=== PATIENT | male | born 1950 | race Caucasian/White ===

== ENCOUNTER 2020-04-28 09:12 | Day surgery (SDC) | payer OTHER | END 2020-04-28 22:48 | disposition home or self-care (01) | LOC: EDBD 09:12 → WOUND 09:12 | DX: L59.8 Other specified disorders of the skin and subcutaneous tissue related to radiation (principal); R07.0 Pain in throat; Z85.818 Personal history of malignant neoplasm of other sites of lip, oral cavity, and pharynx | CPT/HCPCS: G0463 ==

== ENCOUNTER 2020-05-04 00:46 | Day surgery (SDC) | payer OTHER | END 2020-05-04 23:45 | LOC: HBO 00:46 | DX: L59.8 Other specified disorders of the skin and subcutaneous tissue related to radiation (principal); R07.0 Pain in throat; Z85.818 Personal history of malignant neoplasm of other sites of lip, oral cavity, and pharynx; Y84.2 Radiological procedure and radiotherapy as the cause of abnormal reaction of the patient, or of later complication, without mention of misadventure at the time of the procedure | CPT/HCPCS: G0277 ==

== ENCOUNTER 2020-05-05 00:09 | Day surgery (SDC) | payer OTHER | END 2020-05-05 23:45 | LOC: HBO 00:09 | DX: L59.8 Other specified disorders of the skin and subcutaneous tissue related to radiation (principal); Z85.818 Personal history of malignant neoplasm of other sites of lip, oral cavity, and pharynx; R07.0 Pain in throat; Y84.2 Radiological procedure and radiotherapy as the cause of abnormal reaction of the patient, or of later complication, without mention of misadventure at the time of the procedure | CPT/HCPCS: G0277 ==

== ENCOUNTER 2020-05-06 00:13 | Day surgery (SDC) | payer OTHER | END 2020-05-06 23:45 | disposition home or self-care (01) | LOC: HBO 00:13 | DX: L59.8 Other specified disorders of the skin and subcutaneous tissue related to radiation (principal); R07.0 Pain in throat; Y84.2 Radiological procedure and radiotherapy as the cause of abnormal reaction of the patient, or of later complication, without mention of misadventure at the time of the procedure; Z85.818 Personal history of malignant neoplasm of other sites of lip, oral cavity, and pharynx | CPT/HCPCS: G0277 ==

== ENCOUNTER 2020-05-07 00:16 | Day surgery (SDC) | payer OTHER | END 2020-05-07 23:45 | disposition home or self-care (01) | LOC: HBO 00:16 | DX: L59.8 Other specified disorders of the skin and subcutaneous tissue related to radiation (principal); R07.0 Pain in throat; Z85.818 Personal history of malignant neoplasm of other sites of lip, oral cavity, and pharynx | CPT/HCPCS: G0277 ==

== ENCOUNTER 2020-05-08 02:03 | Day surgery (SDC) | payer OTHER | END 2020-05-08 23:45 | disposition home or self-care (01) | LOC: HBO 02:03 | DX: L59.8 Other specified disorders of the skin and subcutaneous tissue related to radiation (principal); R07.0 Pain in throat; Z85.818 Personal history of malignant neoplasm of other sites of lip, oral cavity, and pharynx | CPT/HCPCS: G0277 ==

== ENCOUNTER 2020-05-11 00:32 | Day surgery (SDC) | payer OTHER | END 2020-05-11 23:12 | disposition home or self-care (01) | LOC: HBO 00:32 | DX: L59.8 Other specified disorders of the skin and subcutaneous tissue related to radiation (principal); R07.0 Pain in throat; Z85.818 Personal history of malignant neoplasm of other sites of lip, oral cavity, and pharynx | CPT/HCPCS: G0277 ==

== ENCOUNTER 2020-05-12 00:36 | Day surgery (SDC) | payer OTHER | END 2020-05-12 22:47 | disposition home or self-care (01) | LOC: HBO 00:36 | DX: L59.8 Other specified disorders of the skin and subcutaneous tissue related to radiation (principal); R07.0 Pain in throat; Z85.818 Personal history of malignant neoplasm of other sites of lip, oral cavity, and pharynx | CPT/HCPCS: G0277 ==

== ENCOUNTER 2020-05-13 00:09 | Day surgery (SDC) | payer OTHER | END 2020-05-13 23:04 | disposition home or self-care (01) | LOC: HBO 00:09 | DX: L59.8 Other specified disorders of the skin and subcutaneous tissue related to radiation (principal); R07.0 Pain in throat; Z85.818 Personal history of malignant neoplasm of other sites of lip, oral cavity, and pharynx | CPT/HCPCS: G0277 ==

== ENCOUNTER 2020-05-14 00:26 | Day surgery (SDC) | payer OTHER | END 2020-05-14 22:45 | disposition home or self-care (01) | LOC: HBO 00:26 | DX: L59.8 Other specified disorders of the skin and subcutaneous tissue related to radiation (principal); R07.0 Pain in throat; Z85.818 Personal history of malignant neoplasm of other sites of lip, oral cavity, and pharynx | CPT/HCPCS: G0277 ==

== ENCOUNTER 2020-05-15 02:18 | Day surgery (SDC) | payer OTHER | END 2020-05-15 22:40 | disposition home or self-care (01) | LOC: HBO 02:18 | DX: L59.8 Other specified disorders of the skin and subcutaneous tissue related to radiation (principal); R07.0 Pain in throat; Z85.818 Personal history of malignant neoplasm of other sites of lip, oral cavity, and pharynx; Y84.2 Radiological procedure and radiotherapy as the cause of abnormal reaction of the patient, or of later complication, without mention of misadventure at the time of the procedure; Y78.8 Miscellaneous radiological devices associated with adverse incidents, not elsewhere classified | CPT/HCPCS: G0277 ==

== ENCOUNTER 2020-05-18 00:27 | Day surgery (SDC) | payer OTHER | END 2020-05-18 23:54 | disposition home or self-care (01) | LOC: HBO 00:27 | DX: L59.8 Other specified disorders of the skin and subcutaneous tissue related to radiation (principal); R07.0 Pain in throat; Z85.818 Personal history of malignant neoplasm of other sites of lip, oral cavity, and pharynx | CPT/HCPCS: G0277 ==

== ENCOUNTER 2020-05-19 01:07 | Day surgery (SDC) | payer OTHER | END 2020-05-19 23:40 | disposition home or self-care (01) | LOC: HBO | DX: L59.8 Other specified disorders of the skin and subcutaneous tissue related to radiation (principal); R07.0 Pain in throat; Z85.818 Personal history of malignant neoplasm of other sites of lip, oral cavity, and pharynx | CPT/HCPCS: G0277 ==

== ENCOUNTER 2020-05-20 00:44 | Day surgery (SDC) | payer OTHER | END 2020-05-20 22:58 | disposition home or self-care (01) | LOC: HBO 00:44 | DX: L59.8 Other specified disorders of the skin and subcutaneous tissue related to radiation (principal); R07.0 Pain in throat; Y84.2 Radiological procedure and radiotherapy as the cause of abnormal reaction of the patient, or of later complication, without mention of misadventure at the time of the procedure; Y78.8 Miscellaneous radiological devices associated with adverse incidents, not elsewhere classified; Z85.818 Personal history of malignant neoplasm of other sites of lip, oral cavity, and pharynx | CPT/HCPCS: G0277 ==

== ENCOUNTER 2020-05-21 00:24 | Day surgery (SDC) | payer OTHER | END 2020-05-21 23:48 | disposition home or self-care (01) | LOC: HBO 00:24 | DX: L59.8 Other specified disorders of the skin and subcutaneous tissue related to radiation (principal); R07.0 Pain in throat; Z85.818 Personal history of malignant neoplasm of other sites of lip, oral cavity, and pharynx | CPT/HCPCS: G0277 ==

== ENCOUNTER 2020-05-22 00:45 | Day surgery (SDC) | payer OTHER | END 2020-05-22 23:50 | disposition home or self-care (01) | LOC: HBO 00:45 | DX: L59.8 Other specified disorders of the skin and subcutaneous tissue related to radiation (principal); R07.0 Pain in throat; Z85.818 Personal history of malignant neoplasm of other sites of lip, oral cavity, and pharynx | CPT/HCPCS: G0277 ==

== ENCOUNTER 2020-05-25 00:33 | Day surgery (SDC) | payer OTHER | END 2020-05-25 22:51 | disposition home or self-care (01) | LOC: HBO 00:33 | DX: L59.8 Other specified disorders of the skin and subcutaneous tissue related to radiation (principal); R07.0 Pain in throat; Z85.818 Personal history of malignant neoplasm of other sites of lip, oral cavity, and pharynx | CPT/HCPCS: G0277 ==

== ENCOUNTER 2020-05-26 00:30 | Day surgery (SDC) | payer OTHER | END 2020-05-26 23:02 | disposition home or self-care (01) | LOC: HBO 00:30 | DX: L59.8 Other specified disorders of the skin and subcutaneous tissue related to radiation (principal); R07.0 Pain in throat; Z85.818 Personal history of malignant neoplasm of other sites of lip, oral cavity, and pharynx | CPT/HCPCS: G0277 ==

== ENCOUNTER 2020-05-27 00:19 | Day surgery (SDC) | payer OTHER | END 2020-05-27 22:46 | disposition home or self-care (01) | LOC: HBO 00:19 | DX: L59.8 Other specified disorders of the skin and subcutaneous tissue related to radiation (principal); R07.0 Pain in throat; Z85.818 Personal history of malignant neoplasm of other sites of lip, oral cavity, and pharynx | CPT/HCPCS: G0277 ==

== ENCOUNTER 2020-05-28 00:10 | Day surgery (SDC) | payer OTHER | END 2020-05-28 23:43 | disposition home or self-care (01) | LOC: HBO 00:10 | DX: L59.8 Other specified disorders of the skin and subcutaneous tissue related to radiation (principal); R07.0 Pain in throat; Y84.2 Radiological procedure and radiotherapy as the cause of abnormal reaction of the patient, or of later complication, without mention of misadventure at the time of the procedure; Z85.818 Personal history of malignant neoplasm of other sites of lip, oral cavity, and pharynx | CPT/HCPCS: G0277 ==

== ENCOUNTER 2020-05-29 01:06 | Day surgery (SDC) | payer OTHER | END 2020-05-29 22:41 | disposition home or self-care (01) | LOC: HBO 01:06 | DX: L59.8 Other specified disorders of the skin and subcutaneous tissue related to radiation (principal); Z85.818 Personal history of malignant neoplasm of other sites of lip, oral cavity, and pharynx; R07.0 Pain in throat | CPT/HCPCS: G0277 ==

== ENCOUNTER 2020-06-01 00:45 | Day surgery (SDC) | payer OTHER | END 2020-06-01 22:38 | disposition home or self-care (01) | LOC: HBO 00:45 | DX: L59.8 Other specified disorders of the skin and subcutaneous tissue related to radiation (principal); R07.0 Pain in throat; Y84.2 Radiological procedure and radiotherapy as the cause of abnormal reaction of the patient, or of later complication, without mention of misadventure at the time of the procedure; Z85.818 Personal history of malignant neoplasm of other sites of lip, oral cavity, and pharynx | CPT/HCPCS: G0277 ==

== ENCOUNTER 2020-06-02 00:46 | Day surgery (SDC) | payer OTHER | END 2020-06-02 22:53 | disposition home or self-care (01) | LOC: HBO 00:46 | DX: L59.8 Other specified disorders of the skin and subcutaneous tissue related to radiation (principal); R07.0 Pain in throat; Z85.818 Personal history of malignant neoplasm of other sites of lip, oral cavity, and pharynx; Y84.2 Radiological procedure and radiotherapy as the cause of abnormal reaction of the patient, or of later complication, without mention of misadventure at the time of the procedure | CPT/HCPCS: G0277 ==

== ENCOUNTER 2020-06-03 00:06 | Day surgery (SDC) | payer OTHER | END 2020-06-03 22:37 | disposition home or self-care (01) | LOC: HBO 00:06 | DX: L59.8 Other specified disorders of the skin and subcutaneous tissue related to radiation (principal); Z85.818 Personal history of malignant neoplasm of other sites of lip, oral cavity, and pharynx; R07.0 Pain in throat; Y84.2 Radiological procedure and radiotherapy as the cause of abnormal reaction of the patient, or of later complication, without mention of misadventure at the time of the procedure | CPT/HCPCS: G0277 ==

== ENCOUNTER 2020-06-03 00:08 | Day surgery (SDC) | payer OTHER | END 2020-06-03 22:37 | disposition home or self-care (01) | LOC: WOUND 00:08 | DX: L59.8 Other specified disorders of the skin and subcutaneous tissue related to radiation (principal); R07.0 Pain in throat; Y84.2 Radiological procedure and radiotherapy as the cause of abnormal reaction of the patient, or of later complication, without mention of misadventure at the time of the procedure; Z85.818 Personal history of malignant neoplasm of other sites of lip, oral cavity, and pharynx; Z92.21 Personal history of antineoplastic chemotherapy | CPT/HCPCS: G0463 ==

== ENCOUNTER 2020-06-04 00:07 | Day surgery (SDC) | payer OTHER | END 2020-06-04 23:01 | disposition home or self-care (01) | LOC: HBO 00:07 | DX: L59.8 Other specified disorders of the skin and subcutaneous tissue related to radiation (principal); R07.0 Pain in throat; Z85.818 Personal history of malignant neoplasm of other sites of lip, oral cavity, and pharynx; Y84.2 Radiological procedure and radiotherapy as the cause of abnormal reaction of the patient, or of later complication, without mention of misadventure at the time of the procedure | CPT/HCPCS: G0277 ==

== ENCOUNTER 2020-06-05 00:54 | Day surgery (SDC) | payer OTHER | END 2020-06-05 22:42 | disposition home or self-care (01) | LOC: HBO 00:54 | DX: L59.8 Other specified disorders of the skin and subcutaneous tissue related to radiation (principal); R07.0 Pain in throat; Y84.2 Radiological procedure and radiotherapy as the cause of abnormal reaction of the patient, or of later complication, without mention of misadventure at the time of the procedure; Z85.818 Personal history of malignant neoplasm of other sites of lip, oral cavity, and pharynx | CPT/HCPCS: G0277 ==

== ENCOUNTER 2020-06-08 01:19 | Day surgery (SDC) | payer OTHER | END 2020-06-08 22:44 | disposition home or self-care (01) | LOC: HBO 01:19 | DX: L59.8 Other specified disorders of the skin and subcutaneous tissue related to radiation (principal); R07.0 Pain in throat; Y84.2 Radiological procedure and radiotherapy as the cause of abnormal reaction of the patient, or of later complication, without mention of misadventure at the time of the procedure; Z85.818 Personal history of malignant neoplasm of other sites of lip, oral cavity, and pharynx | CPT/HCPCS: G0277 ==

== ENCOUNTER 2020-06-09 00:11 | Day surgery (SDC) | payer OTHER | END 2020-06-09 22:49 | disposition home or self-care (01) | LOC: HBO 00:11 | DX: L59.8 Other specified disorders of the skin and subcutaneous tissue related to radiation (principal); Z85.818 Personal history of malignant neoplasm of other sites of lip, oral cavity, and pharynx; R07.0 Pain in throat | CPT/HCPCS: G0277 ==

== ENCOUNTER 2020-06-11 00:14 | Day surgery (SDC) | payer OTHER | END 2020-06-11 22:54 | disposition home or self-care (01) | LOC: HBO 00:14 | DX: L59.8 Other specified disorders of the skin and subcutaneous tissue related to radiation (principal); R07.0 Pain in throat; Y84.2 Radiological procedure and radiotherapy as the cause of abnormal reaction of the patient, or of later complication, without mention of misadventure at the time of the procedure; Z85.818 Personal history of malignant neoplasm of other sites of lip, oral cavity, and pharynx | CPT/HCPCS: G0277 ==

== ENCOUNTER 2020-06-22 00:37 | Day surgery (SDC) | payer OTHER | END 2020-06-22 22:55 | disposition home or self-care (01) | LOC: HBO 00:37 | DX: L59.8 Other specified disorders of the skin and subcutaneous tissue related to radiation (principal); R07.0 Pain in throat; Z85.818 Personal history of malignant neoplasm of other sites of lip, oral cavity, and pharynx; Y84.2 Radiological procedure and radiotherapy as the cause of abnormal reaction of the patient, or of later complication, without mention of misadventure at the time of the procedure | CPT/HCPCS: G0277 ==

== ENCOUNTER 2020-06-23 00:23 | Day surgery (SDC) | payer OTHER | END 2020-06-23 23:13 | disposition home or self-care (01) | LOC: HBO 00:23 | DX: L59.8 Other specified disorders of the skin and subcutaneous tissue related to radiation (principal); R07.0 Pain in throat; Z85.818 Personal history of malignant neoplasm of other sites of lip, oral cavity, and pharynx; Y84.2 Radiological procedure and radiotherapy as the cause of abnormal reaction of the patient, or of later complication, without mention of misadventure at the time of the procedure | CPT/HCPCS: G0277 ==

== ENCOUNTER 2020-06-24 00:16 | Day surgery (SDC) | payer OTHER | END 2020-06-24 22:36 | disposition home or self-care (01) | LOC: HBO 00:16 | DX: L59.8 Other specified disorders of the skin and subcutaneous tissue related to radiation (principal); R07.0 Pain in throat; Z85.818 Personal history of malignant neoplasm of other sites of lip, oral cavity, and pharynx | CPT/HCPCS: G0277 ==

== ENCOUNTER 2020-06-25 00:08 | Day surgery (SDC) | payer OTHER | END 2020-06-25 23:31 | disposition home or self-care (01) | LOC: HBO 00:08 | DX: L59.8 Other specified disorders of the skin and subcutaneous tissue related to radiation (principal); R07.0 Pain in throat; Z85.818 Personal history of malignant neoplasm of other sites of lip, oral cavity, and pharynx; Y84.2 Radiological procedure and radiotherapy as the cause of abnormal reaction of the patient, or of later complication, without mention of misadventure at the time of the procedure | CPT/HCPCS: G0277 ==

== ENCOUNTER 2020-06-26 02:00 | Day surgery (SDC) | payer OTHER | END 2020-06-26 22:39 | disposition home or self-care (01) | LOC: HBO 02:00 | DX: L59.8 Other specified disorders of the skin and subcutaneous tissue related to radiation (principal); R07.0 Pain in throat; Z85.818 Personal history of malignant neoplasm of other sites of lip, oral cavity, and pharynx | CPT/HCPCS: G0277 ==

== ENCOUNTER 2020-06-29 02:13 | Day surgery (SDC) | payer OTHER | END 2020-06-29 22:52 | disposition home or self-care (01) | LOC: HBO 02:13 | DX: L59.8 Other specified disorders of the skin and subcutaneous tissue related to radiation (principal); R07.0 Pain in throat; Z85.818 Personal history of malignant neoplasm of other sites of lip, oral cavity, and pharynx | CPT/HCPCS: G0277 ==

== ENCOUNTER 2020-06-30 00:21 | Day surgery (SDC) | payer OTHER | END 2020-06-30 22:41 | disposition home or self-care (01) | LOC: HBO 00:21 | DX: L59.8 Other specified disorders of the skin and subcutaneous tissue related to radiation (principal); R07.0 Pain in throat; Z85.818 Personal history of malignant neoplasm of other sites of lip, oral cavity, and pharynx | CPT/HCPCS: G0277 ==

== ENCOUNTER 2020-07-01 00:43 | Day surgery (SDC) | payer OTHER | END 2020-07-01 22:47 | disposition home or self-care (01) | LOC: HBO 00:43 | DX: L59.8 Other specified disorders of the skin and subcutaneous tissue related to radiation (principal); R07.0 Pain in throat; Z85.818 Personal history of malignant neoplasm of other sites of lip, oral cavity, and pharynx | CPT/HCPCS: G0277 ==

== ENCOUNTER 2020-07-02 00:15 | Day surgery (SDC) | payer OTHER | END 2020-07-02 22:48 | disposition home or self-care (01) | LOC: HBO 00:15 | DX: L59.8 Other specified disorders of the skin and subcutaneous tissue related to radiation (principal); R07.0 Pain in throat; Y84.2 Radiological procedure and radiotherapy as the cause of abnormal reaction of the patient, or of later complication, without mention of misadventure at the time of the procedure; Z85.818 Personal history of malignant neoplasm of other sites of lip, oral cavity, and pharynx | CPT/HCPCS: G0277 ==

== ENCOUNTER 2020-07-03 00:27 | Day surgery (SDC) | payer OTHER | END 2020-07-03 22:46 | disposition home or self-care (01) | LOC: HBO 00:27 | DX: L59.8 Other specified disorders of the skin and subcutaneous tissue related to radiation (principal); R07.0 Pain in throat; Z85.818 Personal history of malignant neoplasm of other sites of lip, oral cavity, and pharynx | CPT/HCPCS: G0277 ==

== ENCOUNTER 2020-07-06 00:17 | Day surgery (SDC) | payer OTHER | END 2020-07-06 22:47 | disposition home or self-care (01) | LOC: HBO 00:17 | DX: L59.8 Other specified disorders of the skin and subcutaneous tissue related to radiation (principal); R07.0 Pain in throat; Y84.2 Radiological procedure and radiotherapy as the cause of abnormal reaction of the patient, or of later complication, without mention of misadventure at the time of the procedure; Z85.818 Personal history of malignant neoplasm of other sites of lip, oral cavity, and pharynx | CPT/HCPCS: G0277 ==

== ENCOUNTER 2020-07-07 00:48 | Day surgery (SDC) | payer OTHER | END 2020-07-07 22:52 | disposition home or self-care (01) | LOC: HBO 00:48 | DX: L59.8 Other specified disorders of the skin and subcutaneous tissue related to radiation (principal); Z85.810 Personal history of malignant neoplasm of tongue; Y84.2 Radiological procedure and radiotherapy as the cause of abnormal reaction of the patient, or of later complication, without mention of misadventure at the time of the procedure | CPT/HCPCS: G0277; G0463 ==

== ENCOUNTER 2024-12-06 20:19 | Emergency (ER) | payer MEDICARE ==
[~2024-12-06] VITALS: Ht 165.1 cm; Wt 76.2 kg
[2024-12-06] MEDS ORDERED: Ketorolac Tromethamine 15mg Vial IM ONE (20:30)
[2024-12-06 21:25] VITALS: BP 177/55
[2024-12-06] MEDS ORDERED: LIDO700A20 TOP (22:14)
[2024-12-06] MEDS ORDERED: CYCL10 PO (22:14)
== END 2024-12-06 22:37 | disposition home or self-care (01) ==
LOC: ER 20:19
DX: M54.41 Lumbago with sciatica, right side (principal); G89.29 Other chronic pain; Z88.8 Allergy status to other drugs, medicaments and biological substances
CPT/HCPCS: 96372; 99282-25; A9270; J1885

== ENCOUNTER → 2024-12-09 | Outpatient (CLI) | payer MEDICARE ==
[~2024-12-09] MED LIST: CYCL10 PO; LIDO700A20 TOP
[2024-12-12 23:18] LABS: VARICELLA-ZOSTER VIRUS BY PCR Detected; VARICELLA-ZOSTER VIRUS SOURCE CALF
== END | disposition home or self-care (01) ==
LOC: LAB 17:33 → LAB SHORT 17:33
PROVIDERS: Family Medicine
DX: B02.9 Zoster without complications (principal)
CPT/HCPCS: 87798